=== PATIENT | male | born 1985 | race Caucasian/White ===

== ENCOUNTER 2016-11-23 20:39 | Emergency (ER) | payer OTHER ==
[~2016-11-23] VITALS: Ht 177.8 cm; Wt 68.0 kg
[2016-11-23 21:20] VITALS: BP 131/86
[2016-11-23] MEDS ORDERED: LIDOCAINE 1%, 20ML ONE (21:23)
[2016-11-23] MEDS ORDERED: ACETAMINOPHEN 325 MG TABLET PO ONE (21:30)
[2016-11-23] MEDS ORDERED: ACETAMINOPHEN 325 MG TABLET ONE (21:43)
[2016-11-23] MEDS ORDERED: DIPH,PERTUSS(ACELL),TET VAC/PF 0.5 ML IM-VACC ONE (21:44)
[2016-11-23] MEDS ORDERED: PLEASE ENTER ALLERGIES MC SCH ×2 (22:00)
[2016-11-23] MEDS ORDERED: LIDOCAINE 1%, 20ML INFIL ONE (22:00)
[2016-11-23] MEDS ORDERED: DIPHTHERIA-TETANUS ADULT 0.5ML IM-VACC ONE (22:00)
== END 2016-11-23 23:43 | disposition left against medical advice (07) ==
LOC: ED 22:15
DX: S01.01XA Laceration without foreign body of scalp, initial encounter (principal); W18.39XA Other fall on same level, initial encounter; Y93.89 Activity, other specified; Y92.098 Other place in other non-institutional residence as the place of occurrence of the external cause; Y99.8 Other external cause status
CPT/HCPCS: 13121; 13122; 90471; 90714